=== PATIENT | female | born 2000 | race Two or more races ===

== ENCOUNTER 2024-08-29 19:06 | Emergency (ER) | payer MEDICAID, SELFPAY ==
[2024-08-29 19:45] VITALS: BP 106/70; PULSE 84; RESP 16; TEMP 36.9; O2SAT 98
--- NOTE | 2024-08-29 20:03 | XR_ITS ---
Examination: OB Transvaginal ultrasound of the pelvis, complete Technique: Transvaginal sonographic images pelvis performed using suarez scale imaging Exam date and time: August 29, 2024 2123 hrs. Indications: Early by history with pelvic pain beginning one week ago Findings: Uterus 9.1 x 5.2 x 6.3 cm Gestational sac 1.3 cm corresponds to 6 weeks 1 day gestational age Cardiac motion 94 bpm Right ovary 3.0 x 3.2 cm arterial flow 23 mm cyst Left ovary 2.2 x 2.1 cm arterial flow small follicles Impression: Early intrauterine gestation corresponding to 6 weeks 1 day gestational age Recommend short-term follow-up to confirm persistent viability
--- NOTE | 2024-08-29 20:04 | EDNOTE_ITS ---
<Statement entered by Jelena Bedolla MD - 08/30/24 04:06> As co-signing physician, I was present and available for consult prn. I concur with the plan and care as documented by the midlevel provider. ED Female Urogenital RME/HPI General Chief complaint: Abdominal Pain Stated complaint: ABD PAIN Time Seen by Provider: 08/29/24 20:02 Arrival date/time: 08/29/24 19:06 23F at approximately 6 weeks and with no significant PMH presents to ED with 1 week of intermittent but worsening N/V, L pelvic pain and some constipation. Patient denies dysuria and vaginal bleeding. Limitations: no limitations Related Data Home Medications ?Medication ?Instructions ?Recorded ?Confirmed vits no.124-ferrous fum 1 tab PO QDAY 04/19/20 08/16/20 27 mg iron-folic acid 800 mcg tablet ( Vitamin) ferrous sulfate 325 mg (65 mg 325 mg PO QDAY 08/19/20 08/19/20 iron) tablet Previous Rx's ?Medication ?Instructions ?Recorded phenazopyridine 200 mg tablet 200 mg PO TID PRN pain #9 tabs 02/04/22 (Pyridium) meloxicam 7.5 mg tablet 7.5 mg PO BID #10 tabs 09/29/22 cyclobenzaprine 10 mg tablet 10 mg PO TID PRN muscle spasm #20 05/06/23 tabs ibuprofen 800 mg tablet 800 mg PO Q8H PRN pain #30 tabs 05/06/23 loperamide 2 mg capsule (Imodium 2 mg PO Q6H PRN loose stool #14 10/05/23 A-D) caps ondansetron 4 mg disintegrating 4 mg PO Q8H PRN nausea and 10/05/23 tablet vomiting #10 tabs doxylamine 10 mg-pyridoxine (vit 1 tab PO BID PRN nausea and 08/29/24 B6) 10 mg tablet,delayed release vomiting #60 tabs (Diclegis) lactulose 10 gram/15 mL (15 mL) 10 g (15 mL) PO QDAY PRN 08/29/24 oral solution constipation #300 mL Allergies Allergy/AdvReac Type Severity Reaction Status Date / Time No Known Allergies Allergy Verified 08/29/24 19:10 Review of Systems Review of Systems Systems Reviewed: All systems reviewed, normal except as documented Constitutional Constitutional: Reports system reviewed and no additional complaints, except as documented, Denies fever(s) and Denies headache(s) ENT Ears, Nose, Mouth, and Throat: Denies disequilibrium and Denies headache(s) Cardiovascular Cardiovascular: Reports system reviewed and no additional complaints, except as documented, Denies chest pain and Denies dyspnea Respiratory Respiratory: Reports system reviewed and no additional complaints, except as documented, Denies cough and Denies dyspnea Gastrointestinal Gastrointestinal: Reports system reviewed and no additional complaints, except as documented, Reports as per HPI, Denies abdominal pain, Reports nausea and Reports vomiting Genitourinary Genitourinary: Reports as per HPI and Reports pelvic pain Neurologic Neurologic: Reports system reviewed and no additional complaints, except as documented, Denies confusion, Denies disequilibrium and Denies headache(s) Psychiatric Psychiatric: Denies confusion Past Medical History Past Medical History NEUROLOGIC: Negative Neurological Disorders CARDIAC: Negative Cardiac Disorders or Congestive Heart Failure RESPIRATORY: Negative Chronic Obstructive Pulmonary Disease (COPD) GASTROINTESTINAL: Negative Gastrointestinal Disorders GENITOURINARY: Positive Genitourinary Disorders (HISTORY OF UTI'S); Negative Renal Disease MUSCULOSKELETAL: Negative Musculoskeletal Disorders ENDOCRINE: Negative Endocrine Disorders, Diabetes Mellitus Type 1 or Diabetes Mellitus Type 2 HEMATOLOGIC: Negative Blood Disorders OTHER HISTORY: Negative Autoimmune Disease, MRSA, VRSA, Vancomycin-Resistant Enterococci or Cancer Family History FAMILY HISTORY: Positive Family Cardiac Disorders (GRAND MOTHER) and Family Cancer (GRAND MOTHER BREAST CANCER); Negative Family Psychiatric Problems, Family Respiratory Disorders, Family Gastrointestinal Problems, Family Surgery or Family Anesthesia Reaction Surgical History SURGICAL: Negative Section Social History SMOKING STATUS: Never smoker SUBSTANCE USE: marijuana ED Exam General Limitations: Present no limitations General appearance: Present alert and in no apparent distress Head Head exam: Present atraumatic Eye Eye exam: Present normal appearance, PERRL and EOMI ENT ENT exam: Present normal exam, normal oropharynx and mucous membranes moist Neck Neck exam: Present normal inspection, full ROM and trachea midline Chest Chest inspection: Present normal inspection and symmetric chest wall rise Respiratory Respiratory exam: Present normal lung sounds bilaterally Cardiovascular Cardiovascular exam: Present regular rate, normal rhythm and normal heart sounds Abdominal Exam Abdominal exam: Present soft and normal bowel sounds Extremities Exam Extremities exam: Present normal inspection and full ROM Back Exam Back exam: Present normal inspection and full ROM Neurological Exam Neurological exam: Present alert, oriented X3 and CN II-XII intact Psychiatric Psychiatric exam: Present normal affect and normal mood Skin Skin exam: Present warm, dry, intact and normal color Course Quality Measures none Orders Category Date Time Status US OB transvaginal Stat Exams 08/29/24 20:03 Completed Beta HCG,Quantitative Stat Lab 08/29/24 20:07 Completed CBC Stat Lab 08/29/24 20:07 Completed CMP [Comprehensive Metabolic Panel] Stat Lab 08/29/24 20:07 Completed UA [Urinalysis] Stat Lab 08/29/24 20:33 Completed Urine Culture Stat Lab 08/29/24 20:33 Received Metoclopramide [Reglan] Med 08/30/24 00:01 Discontinued 10 mg PO X1 ONE Vital Signs Vital signs: Vital Signs Temperature 98.4 F 08/29/24 19:45 Pulse Rate 84 08/29/24 19:45 Respiratory Rate 16 08/29/24 19:45 Blood Pressure 106/70 08/29/24 19:45 Pulse Oximetry (%) 98 08/29/24 19:45 Oxygen Delivery Method Room Air 08/29/24 19:45 O2 at 98% on RA and WNLs Urogenital - Female MDM Narrative MDM Narrative:: 23F at approximately 6 weeks and with no significant PMH presents to ED with 1 week of intermittent but worsening N/V, L pelvic pain and some constipation. Patient denies dysuria and vaginal bleeding. Physical exam reveals no pelvic tenderness. Patient is afebrile, calm, and alert. US normal IUP. Beta HCG WNLs. UA clean. Moderate leukocytosis, likely reactive. Counseled symptoms likely due to normal . However, if worsening and/or fevers/chills, can return for MRI. Patient data External records reviewed:: [facility] previous records Clinical information provided by:: patient Social determinants that could affect healthcare access:: none Patient has the following chronic illnesses:: none How is presenting disease/condition affected by chronic disease/condition?: no chronic disease Evaluation data The following diagnostics were reviewed and interpreted by me:: lab results and radiology exam(s) Lab and/or radiology exams considered but not ordered:: ordered Interpretation Summary: above Medications / Prescriptions Medications or Prescriptions considered but not ordered:: not ordered Medication administrations:: Medication Administration History Discontinued Medications Metoclopramide HCl (Metoclopramide 5 Mg Tablet) 10 mg PO X1 ONE Stop: 08/30/24 00:02 Last Admin: 08/30/24 00:08 Dose: 10 mg Documented By: n/a Consultations Consultation(s) initiated? (list below): No Diagnosis Urogenital Female Differential Diagnosis: urinary tract infection, bacterial vaginosis, trichomoniasis, cervicitis, ovarian cyst, vaginitis, ruptured ovarian cyst, cyst of Bartholin's gland, cystitis, dysmenorrhea and other (constipation, ab pain, N/V due to ) Most likely diagnosis given after review of the tests above:: constipation, ab pain, N/V due to Admission Indicated Admission indicated?: not indicated Admission Request Was there a request for admission?: No Disposition Plan Disposition Plan: Discharge Discharge Attestation Discharge Attestation: The patient and all family members were given an opportunity to ask questions and understood the discharge instructions. Discharge instructions specifically effects, indications for sooner follow up or return to the emergency department, and the expected course of current diagnosis. Patient condition: Stable Discharge Plan Plan Patient Disposition: HOME (Self Care) Disposition Comment: Stable Prescriptions/Referrals Prescriptions/Med Rec: New lactulose 10 gram/15 mL (15 mL) solution 10 g PO QDAY PRN (Reason: constipation) Qty: 300 0RF doxylamine-pyridoxine (vit B6) [Diclegis] 10-10 mg tablet,delayed release (DR/EC) 1 tab PO BID PRN (Reason: nausea and vomiting) Qty: 60 0RF No Action Vitamin 27 mg iron- 800 mcg Tablet 1 tab PO QDAY ferrous sulfate 325 mg (65 mg iron) tablet 325 mg PO QDAY phenazopyridine [Pyridium] 200 mg tablet 200 mg PO TID PRN (Reason: pain) Qty: 9 0RF loperamide [Imodium A-D] 2 mg capsule 2 mg PO Q6H PRN (Reason: loose stool) Qty: 14 0RF ondansetron 4 mg tablet,disintegrating 4 mg PO Q8H PRN (Reason: nausea and vomiting) Qty: 10 0RF meloxicam 7.5 mg tablet 7.5 mg PO BID Qty: 10 0RF cyclobenzaprine 10 mg tablet 10 mg PO TID PRN (Reason: muscle spasm) Qty: 20 0RF ibuprofen 800 mg tablet 800 mg PO Q8H PRN (Reason: pain) Qty: 30 0RF Referrals: Radha Salamanca CNM [Primary Care Provider] - In 1 week Problem List Clinical Impression: Abdominal pain, Constipation, Nausea and vomiting during Patient/Caregiver Discharge Instructions Education Materials: ED Constipation (Adult) Additional Instructions: Please follow-up with PCP/OBYGN within 24-48 hours and return immediately if symptoms worsen. Print Language: Indonesian Stand Alone Forms: Patient Portal Info Letter PA/PERISHABLE FREIGHT INSPECTOR Supervising Physician PA/PERISHABLE FREIGHT INSPECTOR Supervising Physician: Dr. Bedolla
[2024-08-29 20:29] LABS: Basophils # (Auto) 0.1 Thou/mm3 (0.0-0.2); Basophils % (Auto) 0 % (0-2.5); Eosinophils # (Auto) 0.1 Thou/mm3 (0.0-0.5); Eosinophils % (Auto) 1 % (0-10); Hematocrit 38.3 % (36.0-46.0); Hemoglobin 12.9 g/dL (12.0-16.0); Immature Granulocytes % (Auto) 0 % (0-0); Immature Granulocytes Auto 0.06 Thou/mm3 (0.00-0.00); Lymphocytes # (Auto) 5.3 Thou/mm3 (1.0-4.8); Lymphocytes % (Auto) 36 % (10-50); Mean Corpuscular HGB Conc 33.7 g/dl (31.0-37.0); Mean Corpuscular Hemoglobin 28.4 pg (25.0-35.0); Mean Corpuscular Volume 84 fL (80-100); Monocytes # (Auto) 0.7 Thou/mm3 (0.0-0.8); Monocytes % (Auto) 5 % (0-12); Neutrophils # (Auto) 8.6 Thou/mm3 (1.8-7.7); Neutrophils % (Auto) 58 % (37-80); Nucleated Red Blood Cell % 0 /100 WBC (0); Platelet Count 342 Thou/mm3 (140-440); RDW Standard Deviation 38.5 fL (36.4-46.3); Red Blood Count 4.55 Miln/mm3 (4.00-5.20); White Blood Count 14.9 Thou/mm3 (3.6-11.0)
[2024-08-29 20:58] LABS: Collection Type, Urine Clean Catch; WBC,Urine 0 /hpf (0-5)
[2024-08-29 21:07] LABS: Alanine Aminotransferase 18 U/L (10-49); Albumin, Serum 4.8 gm/dL (3.5-5.0); Albumin/Globulin Ratio 1.5 (1.2-2.2); Alkaline Phosphatase 87 U/L (46-116); Anion Gap 8 (7-16); Aspartate Amino Transferase 15 U/L (0-34); BUN/Creatinine Ratio 22 Ratio (12-20); Bilirubin,Total 0.2 mg/dL (0.3-1.2); Blood Urea Nitrogen 13 mg/dL (9-23); Calcium 10.7 mg/dL (8.3-10.6); Calcium (Corrected) 10.7 mg/dL (8.5-10.1); Carbon Dioxide 25.6 mMol/L (20.0-31.0); Chloride 103 mMol/L (98-107); Creatinine (Component) 0.6 mg/dL (0.6-1.3); Estimated Creatinine Clearance 168.5 mL/min (>60); Globulin 3.1 gm/dL (2.3-3.5); Glucose 92 mg/dL (74-106); Osmolality,Calculated 273 (275-295); Potassium 3.6 mMol/L (3.4-5.1); Sodium 137 mMol/L (136-145); Total Protein 7.9 gm/dL (5.7-8.2); eGFR > 60 See Note
[2024-08-29 21:12] LABS: Bacteria,Urine Rare; Bilirubin,Urine Negative (Negative); Blood,Urine 2+ (Negative); Clarity,Urine Clear (Clear/Hazy); Color,Urine Lt-Yellow (Lt Yel-Yel); Glucose, Urine Negative (Negative); Ketones,Urine Negative (Negative); Leukocyte Esterase,Urine Negative (Negative); Nitrite,Urine Negative (Negative); Protein,Urine Negative (Neg - Trace); RBC,Urine 5 /hpf (0-3); Specific Gravity,Urine 1.029 (1.001-1.035); Squamous Epithelial Cell,Urine 3 /hpf (0-5); Urobilinogen,Urine Negative mg/dL (0.0-1.0)
[2024-08-29 21:40] LABS: Beta HCG,Quantitative 19741 mIU/mL (<5.0)
[2024-08-30] MEDS: METOCLOPRAMIDE 5 MG TABLET 10 MG PO (00:08)
== END 2024-08-30 00:15 | disposition home or self-care (01) ==
PROVIDERS: Physician Assistant; Emergency Provider Emergency Medicine; PCP Advanced Practice Midwife
DX: O21.9 Vomiting of pregnancy, unspecified (principal); O99.891 Other specified diseases and conditions complicating pregnancy; K59.00 Constipation, unspecified; R10.9 Unspecified abdominal pain; R10.2 Pelvic and perineal pain; Z3A.01 Less than 8 weeks gestation of pregnancy
CPT/HCPCS: 36415; 76817; 80053; 81001; 84702; 85025; 87086; 99284; A9270

== ENCOUNTER 2025-01-15 10:09 | Outpatient (AMB) | payer MEDICAID, SELFPAY ==
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
[2025-01-15 10:39] VITALS: BP 108/72; PULSE 82; RESP 18; TEMP 36.6; O2SAT 99; BMI 33.9
== END 2025-01-15 10:58 | disposition home or self-care (01) ==
LOC: HODSOBC 10:09
PROVIDERS: PCP Advanced Practice Midwife; Referring Provider Advanced Practice Midwife; Supervising Provider Obstetrics & Gynecology; Visit Provider Advanced Practice Midwife
DX: Z34.82 Encounter for supervision of other normal pregnancy, second trimester (principal); Z3A.24 24 weeks gestation of pregnancy
CPT/HCPCS: 99203; G0463

== ENCOUNTER 2025-02-18 09:32 | Outpatient (AMB) | payer MEDICAID, SELFPAY ==
[2025-02-18 09:39] VITALS: BP 118/78; PULSE 94; RESP 18; TEMP 36.6; O2SAT 98; BMI 35.1
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
== END 2025-02-18 10:12 | disposition home or self-care (01) ==
LOC: HODSOBC 09:32
PROVIDERS: Supervising Provider Advanced Practice Midwife; Visit Provider Advanced Practice Midwife
DX: Z34.83 Encounter for supervision of other normal pregnancy, third trimester (principal); Z3A.32 32 weeks gestation of pregnancy; Z23 Encounter for immunization
CPT/HCPCS: 90471; 90715; 99214; G0463

== ENCOUNTER 2025-02-26 17:11 | Observation (INO) | payer MEDICAID, SELFPAY ==
[2025-02-26] VITALS (8 sets, daily range): BP systolic 107; BP diastolic 58–61; PULSE 70–102; RESP 18–99; TEMP 36.6–36.7; O2SAT 99–100; BMI 35.2; BMI 26.9
--- NOTE | 2025-02-26 17:40 | XR_ITS ---
Examination: Transvaginal ultrasound of the pelvis, limited Technique: Transvaginal sonographic images pelvis performed using suarez scale imaging Exam date and time: February 26, 2025 1817 hours INDICATIONS: Pelvic pressure today, Unknown cervical length FINDINGS: Cervix 4.6 cm closed IMPRESSION: Cervix 4.6 cm closed
--- NOTE | 2025-02-26 17:41 | XR_ITS ---
Examination: Complete OB ultrasound greater than 14 weeks Date and time of exam: February 26, 2025, 1804 hours INDICATIONS: Pelvic pressure beginning today Findings: Viable intrauterine single fetus with single amniotic sac presentation transverse/cephalic Cardiac motion 153 BPM Placenta anterior grade 2 Umbilical cord insertion seen Amniotic fluid index 6.1 cm spine maternal left Cervix 4.1 cm Ovaries obscured by bowel gas. Composite estimated gestational age based on BPD, head circumference, abdominal circumference, femur length is 32 weeks 6 days Estimated weight 2034 g. Survey of intracranial anatomy, spinal anatomy, abdominal anatomy, four-chamber heart performed with no abnormalities identified. Impression: Viable intrauterine gestation transverse cephalic presentation.
[2025-02-26 18:01] LABS: Collection Type, Urine Clean Catch
[2025-02-26 18:34] LABS: Bilirubin,Urine Negative (Negative); Blood,Urine 2+ (Negative); Calcium Oxalate Crystals,Urine 4+; Clarity,Urine Turbid (Clear/Hazy); Color,Urine Yellow (Lt Yel-Yel); Glucose, Urine Negative (Negative); Ketones,Urine Trace (Negative); Leukocyte Esterase,Urine Positive (Negative); Nitrite,Urine Negative (Negative); Protein,Urine 1+ (Neg - Trace); RBC,Urine 38 /hpf (0-3); Specific Gravity,Urine 1.034 (1.001-1.035); Squamous Epithelial Cell,Urine 6 /hpf (0-5); WBC,Urine 1 /hpf (0-5)
[2025-02-26 19:12] LABS: FFN Specimen Descripton Clr Colrless Aqueous; Fetal Fibronectin Negative (Negative)
== END 2025-02-26 20:00 | disposition home or self-care (01) ==
PROVIDERS: Obstetrics & Gynecology; Admitting Provider Advanced Practice Midwife; Visit Provider Advanced Practice Midwife
DX: O26.893 Other specified pregnancy related conditions, third trimester (principal); Z3A.32 32 weeks gestation of pregnancy; R10.2 Pelvic and perineal pain
CPT/HCPCS: 59899; 76805; 76830; 81001; 82731; G0378

== ENCOUNTER 2025-03-05 15:24 | Outpatient (AMB) | payer MEDICAID, SELFPAY ==
[2025-03-05 16:05] VITALS: BP 108/62; PULSE 96; RESP 18; TEMP 36.8; O2SAT 98; BMI 34.9
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
== END 2025-03-05 16:35 | disposition home or self-care (01) ==
LOC: HODSOBC 15:24
PROVIDERS: Supervising Provider Advanced Practice Midwife; Visit Provider Advanced Practice Midwife
DX: Z34.83 Encounter for supervision of other normal pregnancy, third trimester (principal); Z3A.33 33 weeks gestation of pregnancy
CPT/HCPCS: 99213; G0463

== ENCOUNTER 2025-03-06 22:47 | Observation (INO) | payer MEDICAID, SELFPAY ==
[2025-03-06] VITALS (13 sets, daily range): BP systolic 120; BP diastolic 71; PULSE 76–101; RESP 18–99; TEMP 36.6; O2SAT 98–100; BMI 35.3
[2025-03-07] VITALS (34 sets, daily range): BP systolic 90–113; BP diastolic 48–64; PULSE 73–98; O2SAT 98–100
[2025-03-07] MEDS: TERBUTALINE SULF INJ 1 MG/ML VIAL 0.25 MG SC ×2 (00:05→02:01)
[2025-03-07] MEDS: RINGERS LACTATED 1000 ML 1,000 ML 999 ML IV (00:25)
[2025-03-07 00:26] LABS: Collection Type, Urine Voided
[2025-03-07 00:40] LABS: Bilirubin,Urine Negative (Negative); Blood,Urine 1+ (Negative); Calcium Oxalate Crystals,Urine 2+; Color,Urine Yellow (Lt Yel-Yel); Glucose, Urine Negative (Negative); Ketones,Urine Negative (Negative); Leukocyte Esterase,Urine Positive (Negative); Nitrite,Urine Negative (Negative); PH,Urine 6.5 (5.0-7.0); Protein,Urine Trace (Neg - Trace); RBC,Urine 12 /hpf (0-3); Specific Gravity,Urine 1.024 (1.001-1.035); Squamous Epithelial Cell,Urine 4 /hpf (0-5); Urobilinogen,Urine Negative mg/dL (0.0-1.0); WBC,Urine 3 /hpf (0-5)
[2025-03-07 00:41] LABS: Clarity,Urine Cloudy (Clear/Hazy)
[2025-03-07] MEDS: BETAMET ACET/BETAMET NA PH (Celestone) 6 MG/ML VIAL 12 MG IM (02:02)
== END 2025-03-07 02:39 | disposition home or self-care (01) ==
PROVIDERS: Admitting Provider Obstetrics & Gynecology; Visit Provider Obstetrics & Gynecology
DX: O47.03 False labor before 37 completed weeks of gestation, third trimester (principal); Z3A.33 33 weeks gestation of pregnancy
CPT/HCPCS: 59025; 59899; 81001; 96372; J0702; J3105; J7120

== ENCOUNTER 2025-03-08 02:06 | Outpatient (CLI) | payer MEDICAID, SELFPAY ==
[2025-03-08 02:46] VITALS: BP 111/57; PULSE 91; RESP 18; RESP 98; TEMP 36.8
[2025-03-08] MEDS: BETAMET ACET/BETAMET NA PH (Celestone) 6 MG/ML VIAL 12 MG IM (03:09)
== END 2025-03-08 03:10 | disposition home or self-care (01) ==
LOC: S4S1 02:11 → S4SX 02:32
PROVIDERS: Referring Provider Specialist; Visit Provider Specialist
DX: Z34.83 Encounter for supervision of other normal pregnancy, third trimester (principal); Z36.9 Encounter for antenatal screening, unspecified; Z3A.33 33 weeks gestation of pregnancy
CPT/HCPCS: 59025; 96372; J0702

== ENCOUNTER 2025-04-01 14:05 | Outpatient (AMB) | payer MEDICAID, SELFPAY ==
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
[2025-04-01 14:38] VITALS: BP 107/66; PULSE 92; RESP 18; TEMP 36.4; O2SAT 97; BMI 35.2
== END 2025-04-01 15:25 | disposition home or self-care (01) ==
PROVIDERS: Supervising Provider Advanced Practice Midwife; Visit Provider Advanced Practice Midwife
DX: O09.893 Supervision of other high risk pregnancies, third trimester (principal); O21.2 Late vomiting of pregnancy; O99.891 Other specified diseases and conditions complicating pregnancy; R12 Heartburn; Z3A.36 36 weeks gestation of pregnancy
CPT/HCPCS: 99214; G0463

== ENCOUNTER 2025-04-04 20:29 | Observation (INO) | payer MEDICAID, SELFPAY ==
[2025-04-04 20:42] VITALS: BMI 34.2
[2025-04-04 20:45] VITALS: BP 119/77; PULSE 103; RESP 17; RESP 99; TEMP 36.7
[2025-04-04 20:46] VITALS: BP 119/77; PULSE 103
== END 2025-04-04 22:23 | disposition home or self-care (01) ==
PROVIDERS: Admitting Provider Advanced Practice Midwife; Visit Provider Obstetrics & Gynecology
DX: O47.1 False labor at or after 37 completed weeks of gestation (principal); Z3A.37 37 weeks gestation of pregnancy
CPT/HCPCS: 59025; 59899

== ENCOUNTER 2025-04-10 14:03 | Outpatient (AMB) | payer MEDICAID, SELFPAY ==
[2025-04-10 14:13] VITALS: BP 123/94; PULSE 75; RESP 17; TEMP 36.4; O2SAT 98; BMI 34.4
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
== END 2025-04-10 15:22 | disposition home or self-care (01) ==
LOC: HODSOBC 14:03
PROVIDERS: Supervising Provider Advanced Practice Midwife; Visit Provider Advanced Practice Midwife
DX: Z34.83 Encounter for supervision of other normal pregnancy, third trimester (principal); Z3A.38 38 weeks gestation of pregnancy
CPT/HCPCS: 99213; G0463

== ENCOUNTER 2025-04-17 15:33 | Outpatient (AMB) | payer MEDICAID, SELFPAY ==
[2025-04-17 15:52] VITALS: BP 108/70; PULSE 77; RESP 17; TEMP 36.5; O2SAT 98; BMI 35.0
--- NOTE | 2025-04-17 15:52 | OBCLNT_ITS ---
Vital Signs 04/17/25 15:52 Height 1.7 m Height Method Stated Weight 101.321 kg Weight Measurement Method Standing Scale BMI 35.0 BP 108/70 Blood Pressure Source Automatic Cuff Blood Pressure Location Right Upper Arm Position Sitting Respiration 17 Pulse 77 Pulse Source Monitor Temp 97.7 F Temp Source Temporal Artery Scan Pulse Oximetry (%) 98 Oxygen Delivery Method Room Air Allergies/Home Meds Allergies & Medications Allergies No Known Allergies Allergy (Verified 04/10/25 14:23) Intake Visit Data Collection New Patient or Established: Established Patient (seen at [facility] within 3 years) Reason for Visit:: OBC 39W1D Seen by Clinical Staff ONLY (RN/MA): No Street Car Mechanic Required: No Do You Feel Safe at Home: Yes Authorities Contacted: N/A PCP or OBGYN visit in last 3 months: Yes Date of Last PCP or OBGYN visit: 04/10/25 Hx Now: Yes Are you currently on any form of Control: No Pain Present Currently: No Pain Scale Used: Chirinos-Baldwin/Numerical Pain scale:: 0 Smoking Status Smoking Status: Never smoker Questionnaires Covid-19 Vaccine Questionnaire Has patient been vacinated for Covid-19 Have you been vacinated for Covid-19: No PHQ-9 PHQ-2 Over the last 2 weeks, how often have you been bothered by any of the following problems? 1. Little interest or pleasure in doing things: not at all 2. Feeling down, depressed, or hopeless: not at all Total score: 0 PHQ-9 3. Trouble falling or staying asleep, or sleeping too much: Not at all 4. Feeling tired or having little energy: Not at all 5. Poor appetite or overeating: Not at all 6. Feeling bad about yourself - or that you are a failure or have let yourself or your family down: Not at all 7. Trouble concentrating on things, such as reading the newspaper or watching television: Not at all 8. Moving or speaking so slowly that other people could have noticed? - Or the opposite - being so fidgety or restless that you have been moving around a lot more than usual: not at all 9. Thoughts that you would be better off or of hurting yourself in some way: Not at all Total score: 0 If you checked off any problems, how difficult have these problems made it for you to do your work, take care of things at home, or get along with other people?: not difficult at all Source: Developed by Drs. Santo Claire, Shamika Trujillo, Tk Dobbins and colleagues, with an educational torie from [employer]. Depression screen completed yes Social History Living Situation History Marital Status: Lives With: Spouse Housing: House Tobacco History Smoking Status: Never smoker Second Hand Smoke Exposure: No Alcohol History Alcohol Intake: Never Substance Use History Substance Use: THC HISTORY IN NOVEMBER Domestic Abuse History Do You Feel Safe at Home: Yes OR RN: Past Medical History Past Medical History: No Hx Neurological Disorders, No Hx Cardiac Disorders, No Hx Cancer, No Hx Blood Disorders, No Hx Gastrointestinal Disorders, No Hx Renal Disease, No Hx Diabetes Mellitus Type 1 and No Hx Diabetes Mellitus Type 2 Care OB Visit Log OB Flowsheet Initial Weight: Not Recorded Date -?-?-?-?-?-?-?-?-?--?-?-?- EGA Weight BP Alb Glu CTX Pres Fundal ht FHR Mov Dilation Station Effacement Hx Notes Visit Note 01/15/25 -?-?-?-?-?-?-?-?-?-?-?-?- 26w 0d 98.203 kg 108/72 occasional 141 a ctive 24-year-old 2 para 1 for initial OB appointment. Patient has poor dates. Last period July 04, 2025. And this gave due date March 28, 2025. However on a [facility] genetics appointment December 03 baby measured 18 weeks 2 and that would change EDC to May 05, 2025. I will call for [facility] ultrasound. I reviewed labs and all were normal. No anemia. Patient is O+, antibody screen negative,. Today I ordered third trimester labs. Patient has a follow-up maternal- ultrasound in January. Discussed diet and comfort measures labor precautions. Increase proteins and small frequent meals. Continue prenatals. Return in 3 weeks OB check, urine dip: pro-,nit-,sheron trace 02/18/25 -?-?-?-?-?-?-?-?-?-?-?-?- 30w 6d 98.6 kg 118/78 absent cephalic 32 156 active slight pressure, indigestion. fetus active. no ptl complaints, TDAP today, patient will gett 3rd tri labs 3rd tri lab, TDA P, discuss ptl precaution, call for MFM results, review fkc bid, discuss comfort measure for indigestion. rtc 2 week 03/05/25 -?-?-?-?-?-?-?-?-?-?-?-?- 33w 0d 98.486 kg 108/62 occasional cephalic 33 156 active fetus active, triage visit for UC and pressure, feels better now, 3rd tri labs wnl, 1hr: 139 fkc bid, increase fluid, review ptl precaution and er precaution. rtc 3 week. discuss gdm diet 04/01/25 -?-?-?-?-?-?-?-?-?-?-?-?- 36w 6d 98.94 kg 107/66 occasional cephalic 36 145 active increased N/V, heartburn. fetus active. denies leaking, bleeding and UC. discuss dates, discuss labor precaution. fkc bid. comfort measure for N/V and heart burn, start zifran 4 mg q 6hr. Pepcin 20 mg as needed prn, rtc 1 week. gbs 04/10/25 -?-?-?-?-?-?-?-?-?-?-?-?- 38w 1d 99.507 kg 123/94 occasional cephalic 37 145 active 1 -3 50 Continued nausea and vomiting. Reports good movement. Denies leaking. Denies bleeding. Increased cramps and pressure. Continued nausea and vomitin g. Reports good movement. Denies leaking. Denies bleeding. Increased cramps and pressure. REPEAT BP: 101/58, UA- Discussed dates. Continue EDC April 23, 2025. Discussed labor precautions. kick count twice a day. Comfort measures for early labor. Discussed danger signs symptoms and ER precautions. Return week OB check 04/17/25 -?-?-?-?-?-?-?-?-?-?-?-?- 39w 1d 101.321 kg 108/70 occasional cephalic 38 145 active 1 -2 50 Nausea and vomiting improved. Fetus active. Denies cramping. Denies leaking. Denies bleeding. Patient lost a mucous plug. Ready to have a baby Reviewed dates again. Discussed GBS. Schedule induction of labor for April 21, 2025. And I discussed induction with patient. Discussed labor precautions. Kick counts twice a day. Continue prenatals. Hydrate. Return week OB check ALEC Calculator Estimated Delivery Date Method Current WG Current Estimate 04/23/25 Manual 39w 1d no dates, b ased on 19 week M sono, EDC: 04/23/25 Other Estimates 04/10/25 LMP (Uncertain) 41w 0d 04/17/25 Ultrasound #1 40w 0d 04/23/25 Ultrasound #2 39w 1d Notes Visit Date: 04/17/25 Last Updated by: Radha Salamanca CNM 24 yo . OB panel: O+,abs-, rpr;;nr, rub imm, hbsag-,hiv-,HC-, UT:pos for THC. 1 hr gtt wnl, NIPT and carrier screen-,GBS- Visit Date: 04/10/25 Last Updated by: Radha Salamanca CNM gbs-, NO Dates, based on 19 week sono< EDC is 04/23/25 Visit Date: 02/18/25 Last Updated by: Radha Salamanca CNM 24 yo . lmp 07/04/24. EDC 04/10/25. O+,abs-,rpr;;nr, rub imm, hbsag-. HIV-, HC-, GC/CT-, A1: 5.4, CF+/FOB-. sma-, NIPT-. Office Procedures OB Clinic LOC & Office Proc's Nursing/Assessment Patient Status: Established Patient OB Clinic Nursing Assessment: Medication Reconciliation, Update PMH in EMR and Vital Signs OB Clinic Coordination of Care: Complex Care and Chronic Disease 1-5, Consent,records obtained, informed consent, Education Simp Pt/Fam and Staff clarify orders Special Needs: Heart tones Established Patient Charge Established Patient Point Assignment: 115 Established Patient Point Charge: EP Level 3 (80-115) Assessment & Plan Diagnosis / Problem List (1) Encounter for supervision of normal in multigravida in third trimester: Status: Acute Plan Schedule induction of labor April 21, 2025. Kick counts twice a day. Discussed labor precautions. Discussed ER precautions and parameters. Hydrate. Return a week OB check Additional Plan Follow Up: 1 Week (obc)
== END 2025-04-17 16:11 | disposition home or self-care (01) ==
LOC: HODSOBC 15:33
PROVIDERS: Supervising Provider Advanced Practice Midwife; Visit Provider Advanced Practice Midwife
DX: Z34.83 Encounter for supervision of other normal pregnancy, third trimester (principal); Z3A.39 39 weeks gestation of pregnancy
CPT/HCPCS: 99213; G0463

== ENCOUNTER 2025-04-20 22:18 | Inpatient (IN) | payer MEDICAID, SELFPAY ==
[2025-04-20] VITALS (15 sets, daily range): BP systolic 114; BP diastolic 88; PULSE 79–99; RESP 18; TEMP 36.4; O2SAT 94–99; BMI 34.8
[2025-04-20 23:08] LABS: Basophils # (Auto) 0.0 Thou/mm3 (0.0-0.2); Basophils % (Auto) 0 % (0-2.5); Eosinophils # (Auto) 0.1 Thou/mm3 (0.0-0.5); Eosinophils % (Auto) 1 % (0-10); Hematocrit 37.6 % (36.0-46.0); Hemoglobin 12.5 g/dL (12.0-16.0); Immature Granulocytes Auto 0.07 Thou/mm3 (0.00-0.00); Lymphocytes # (Auto) 4.1 Thou/mm3 (1.0-4.8); Lymphocytes % (Auto) 27 % (10-50); Mean Corpuscular HGB Conc 33.2 g/dl (31.0-37.0); Mean Corpuscular Hemoglobin 28.0 pg (25.0-35.0); Mean Corpuscular Volume 84 fL (80-100); Monocytes # (Auto) 0.7 Thou/mm3 (0.0-0.8); Monocytes % (Auto) 5 % (0-12); Neutrophils # (Auto) 10.4 Thou/mm3 (1.8-7.7); Neutrophils % (Auto) 67 % (37-80); Nucleated Red Blood Cell # 0.00 Thou/mm3 (0.00-0.00); Nucleated Red Blood Cell % 0 /100 WBC (0); Platelet Count 316 Thou/mm3 (140-440); RDW Standard Deviation 41.3 fL (36.4-46.3); Red Blood Count 4.47 Miln/mm3 (4.00-5.20); White Blood Count 15.4 Thou/mm3 (3.6-11.0)
[2025-04-20 23:31] LABS: Amphetamine/Metham Scrn,Ur OB Negative (Negative); Benzoylecgonine Screen, Ur OB Negative (Negative); Opiate Screen,Urine OB Negative (Negative); THC Screen,Urine OB Positive (Negative); THC U Confirm* See Sep Rpt
[2025-04-21] VITALS (205 sets, daily range): BP systolic 81–126; BP diastolic 45–86; PULSE 65–136; RESP 16–18; TEMP 36.6–36.9; O2SAT 61–100
[2025-04-21 00:08] LABS: Syphilis Nonreactive (Nonreactive)
--- NOTE | 2025-04-21 02:22 | XR_ITS ---
Examination: Complete OB ultrasound greater than 14 weeks Date and time of exam: April 21, 2025, 0227 hours INDICATIONS: Preop labor induction, unknown presentation. Findings: Viable intrauterine single fetus with single amniotic sac presentation cephalic Cardiac motion 120 BPM Placenta anterior grade 3 Umbilical cord insertion seen Amniotic fluid index 4.1 cm Surgery 4.2 cm Ovaries obscured by the fetus.. Composite estimated gestational age based on BPD, head circumference, abdominal circumference, femur length is 37 weeks 4 days. Estimated weight 3041 g. Survey of intracranial anatomy, spinal anatomy, abdominal anatomy, four-chamber heart performed with no abnormalities identified. Impression: Viable intrauterine gestation cephalic presentation Estimated gestational age 37 weeks 4 days..
--- NOTE | 2025-04-21 05:09 | PRELIM_ITS ---
Obstetric ultrasound with Doppler. April 21, 2025 0227 hours Clinical history: Complete ob Comparison: None. Findings: There is a gravid uterus with a live fetus in cephalic presentation of mean gestational age 37 weeks and 4 days (by biometry). cardiac activity is present at a heart rate of 120 beats per minute. The placenta is anterior in location, grade 3. There is no evidence of placenta previa or retroplacental hemorrhage. Amniotic fluid is low (IWONA = 4.1 cm). Estimated weight is 3041 grams+/- 450 grams. No abnormalities by Doppler. The cervix measures 4.2 cm, closed. The ovaries were not visualized. Impression: Gravid uterus with a single live fetus in cephalic presentation of mean gestational age 37 weeks and 4 days. Oligohydramnios. Discussion Details: Results were verbally communicated to Vanda Hermosillo RN A callback number is provided to facilitate direct [id number] communication. Time of verbal communication 08 : 04 am 11-24-2024 Report Electronically Signed By: Jozef Coleman 04/21/2025 5:09:15 AM [EST]
--- NOTE | 2025-04-21 09:09 | PD.LDHP ---
Documentation for date of: 04/21/25 OB Labor/Induct. HPI History of Present Illness Chief complaint: induction : 2 Para: 1 Term pregnancies: 1 pregnancies: 0 Living children: 1 History of Abortions: Spontaneous and Elective: 0 History of Vaginal deliveries: 1 History of sections: No History of : No Date of last menstrual period: 07/04/24 ALEC: 04/23/25 Gestational Age (weeks): 39 (wrong dates. 12/03/24, IUP 18w2. corrected EDC: 04/23/25. confirmed by 28 week sono on 01/29/25) Gestational Age (days): 5 Gestational age based on last menstrual period: 41 Indication for induction: other History of present illness: 24-year-old 2 para 1 for elective induction. Patient is been followed both at [facility] and severe at [facility] medical clinic. Last. Was July 04, 2024. This gave a due date of April 10, 2025. Patient had poor dates. She had her first ultrasound at [facility] December 03, 2024. Patient was 18 weeks 2. And this gave EDC 04/23/2025. Patient had history of a positive cystic fibrosis screen. Per father the baby screened negative. NIPT and SMA were all negative. Patient then had a follow-up ultrasound on January 29, 2025. She was 28 weeks. In this confirmed EDC 04/23/2025. And baby was measuring 72 percentile. Patient is O+, antibody screen negative, RPR nonreactive, rubella immune, hepatitis B negative, hep C negative, HIV negative, GC and Chlamydia were negative. Patient had a positive drug screen for marijuana. Her GC and Chlamydia were negative. 1 hour negative. And GBS negative. Denies social habits. Denies surgery. Denies chronic illness. History of Present Dating criteria: LMP confirmed by 2nd trimester US (wrong dates. EDC based on 18 week sono 12/03/24) Adequate Care: Yes Ultrasounds: normal mid trimester US Obstetrical complications: none Medical complications: none Labs Labs: Positive: Rubella Titre, Negative: RPR, Hepatitis B, HIV, Chlamydia, Gonorrhea and Group Beta Strep and Unknown: Herpes Type 1, Herpes Type 2 and Covid-19 Review of Systems Review of Systems Systems Reviewed: All systems reviewed, normal except as documented Past Medical History Surgical History SURGICAL: Negative Section Meds Home Medications and Allergies Home Medications ?Medication ?Instructions ?Recorded ?Confirmed ?Type promethazine 25 mg tablet 25 mg PO Q6H 04/20/25 04/20/25 History Allergies Allergy/AdvReac Type Severity Reaction Status Date / Time No Known Allergies Allergy Verified 04/20/25 22:25 OB Exam Physical Exam Vital signs: Temp Pulse Resp BP Pulse Ox O2 Del Method 97.9 F 98 16 105/65 94 L Room Air 04/21/25 07:33 04/21/25 08:52 04/21/25 07:33 04/21/25 08:52 04/21/25 07:51 04/21/25 05:30 Narrative: Vital signs stable afebrile. Lungs are clear no wheezes. Normal heart rate and rhythm. Gravid abdomen. Gynecoid pelvis. Estimated weight 7 pounds. Vaginal examination was long 1 thick and posterior. Vertex presentation. Bag water intact. heart rate category 1 with accelerations and moderate variability and irregular contractions Detailed Labor and Delivery Exam Dilation (cm): 1 Effacement (%): thick Cervix position: posterior station: -3 Consistency: soft Presentation: Vertex Cervical ripeness score: 3 Membranes: intact Baseline heart rate: 145 monitor accelerations: 15x15 monitor decelerations: None FDC variability: Moderate (11-25) Contraction frequency (min): irreg Contraction duration (sec): 30 Tachysystole: No Contraction intensity: Moderate OB Results Labs 04/20/25 22:27 Labs: Short CBC 04/20/25 Range/Units 22:27 WBC 15.4 H (3.6-11.0) Thou/mm3 Hgb 12.5 (12.0-16.0) g/dL Hct 37.6 (36.0-46.0) % Plt Count 316 (140-440) Thou/mm3 OB Assessment & Plan Additional Plan Induction method: per misoprostol protocol Plan: induction, anticipate NVD and consult MD glaser
[2025-04-21] MEDS: fentaNYL CIT INJ 50 mCg/ML AMP 2ML 100 MCG IVP ×2 (10:34→13:31)
[2025-04-21] MEDS: RINGERS LACTATED 1000 ML 1,000 ML 100 ML IV ×2 (15:10→15:44)
[2025-04-21] MEDS: OXYTOCIN in NS 30 units 30 UNIT/500 ML BAG IV (18:23)
[2025-04-21] MEDS: BENZO/LANO/ALOE (Dermoplast) 60 GM CAN 1 SPRAY TOP (23:01)
[2025-04-21] MEDS: OXYTOCIN in NS 20 units 20 UNIT/1,000 ML BAG 125 UNIT IV (23:01)
[2025-04-21] MEDS: OXYTOCIN INJ 10 UNIT/ML VIAL IM (23:01)
[2025-04-21] MEDS: MINERAL OIL 30 ML UDC TOP (23:01)
[2025-04-21] MEDS: IBUPROFEN TAB 400 MG TABLET 800 MG PO (23:02)
[2025-04-21] MEDS: TRANEXAMIC ACID 1,000 MG IVPB 1,000 MG/100 ML BAG 200 MG IV (23:03)
--- NOTE | 2025-04-21 23:35 | OBDSUM_ITS ---
Data (Bolanos) Data Hx Section: No : 2 Term: 1 : 0 Livin Abortions: Spontaneous & Theraputic: 0 Delivery Data (Bolanos) Labor Data Initiation of labor: Induction Induction/Augmentation Agent: Cervidil, Pitocin and Artificial ROM ROM date: 04/21/25 ROM time: 22:49 Amniotic membrane rupture type: Artificial Amniotic fluid description: Clear Delivery Data EDC: 04/23/25 EDC calculated by:: LMP/early US confirmation Date of arrival to unit: 04/20/25 Time of arrival to unit: 22:18 Onset of labor date: 04/21/25 Onset of labor time: 12:00 Complete dilation date: 04/21/25 Complete dilation time: 22:21 [place] delivery date: 04/21/25 [place] delivery time: 22:54 Gestational age (weeks): 39 Gestational age (days): 5 Placenta delivery date: 04/21/25 Placenta delivery time: 22:56 Stage 1 total time: Labor - Stage 1 Duration 10 hours and 21 minutes Delivered by: Radha Guerra Delivery nurse: sara Olivas nurse: Carmita Gut Snatcher at delivery: No Support person(s) at delivery: FOB at bedside Delivery Method Delivery method: Normal Vaginal Delivery Presentation: Vertex position: OA Anesthesia Type Anesthesia Type: Epidural Delivery Room Medications Delivery room medications given: fentanyl x2 Delivery room medications: Pitocin 10 u IM, Pitocin 20 u IV, Cytotec 800 CO and other (TXA x2) Placenta Placenta delivery description: Spontaneous (Inspected, intact, medium size clot) Cord blood sent to lab: Yes cord blood collection: Cord Blood Type Episiotomy Episiotomy description: None Lacerations #1: Perineal: 1st degree (small vag and bilateral labial tears) Perineal repair Sutures used for repair: 3.0 Vicryl (x2) EBL Estimated blood loss (ml): 400 Umbilical Cord cord description: 3 Vessels [place] Data (Bolanos) Data order: 1 's gender: Male Identification band number: [id number] weight (gms): 3370 g Weight (pounds): 7 lbs and 6.9 ozs length: 50.8 cm 1 minute: 8 5 minutes: 9 10 minutes: 9
[2025-04-22] VITALS (10 sets, daily range): BP systolic 100–123; BP diastolic 55–82; PULSE 66–95; RESP 17–18; TEMP 36.5–37; O2SAT 96
[2025-04-22] MEDS: TRANEXAMIC ACID 1,000 MG IVPB 1,000 MG/100 ML BAG 200 MG IV (00:07)
[2025-04-22] MEDS: ACETAMINOPHEN 325 MG TABLET 650 MG PO ×2 (01:32→08:45)
[2025-04-22] MEDS: IBUPROFEN TAB 400 MG TABLET 800 MG PO ×2 (05:08→19:55)
--- NOTE | 2025-04-22 07:22 | ESDS_ITS ---
DS: Providers Provider Date of admission: 04/20/25 22:18 Primary care physician: Moris Potts MD Admitting Provider: Carlo Ross MD Attending Provider on Admission: Paul Nicholson MD Consults: 04/22/25 00:02 Referral Routine Comment: Attending Provider on DC: Paul Nicholson MD Discharging Provider: Paul Nicholson MD DS: Diagnosis Problem List Completed Was Problem List Reviewed/Reconciled?: Yes Summary/Hosp Course Brief History: 24-year-old 2 para 1 for elective induction. Patient is been followed both at [facility] and severe at [facility] medical clinic. Last. Was July 04, 2024. This gave a due date of April 10, 2025. Patient had poor dates. She had her first ultrasound at [facility] December 03, 2024. Patient was 18 weeks 2. And this gave EDC 04/23/2025. Patient had history of a positive cystic fibrosis screen. Per father the baby screened negative. NIPT and SMA were all negative. Patient then had a follow- up ultrasound on January 29, 2025. She was 28 weeks. In this confirmed EDC 04/23/2025. And baby was measuring 72 percentile. Patient is O+, antibody screen negative, RPR nonreactive, rubella immune, hepatitis B negative, hep C negative, HIV negative, GC and Chlamydia were negative. Patient had a positive drug screen for marijuana. Her GC and Chlamydia were negative. 1 hour negative. And GBS negative. Denies social habits. Denies surgery. Denies chronic illness. Peripartum Data Delivery Method: Normal Vaginal Delivery Episiotomy Description: None Time Spent with Patient Time attestation: Total time spent providing and/or coordinating discharge services: Exam Vital Signs Temp Pulse Resp BP Pulse Ox O2 Del Method 98.4 F 66 17 101/64 96 Room Air 04/22/25 03:58 04/22/25 03:58 04/22/25 03:58 04/22/25 03:58 04/22/25 03:58 04/22/25 03:58 Discharge Plan Prescriptions/Referrals Prescriptions/Med Rec: No Action vit-iron fum-folic ac [ Vitamin with Minerals] 28 mg iron- 800 mcg tablet 1 tab PO QDAY Qty: 60 4RF ondansetron 4 mg tablet,disintegrating 4 mg PO Q6H PRN (Reason: nausea and vomiting) Qty: 30 2RF promethazine 25 mg tablet 25 mg PO Q6H Patient Comments: TAKE 1 TABLET ORALLY EVERY 6 HOURS NEEDED FOR NAUSEA AND VOMITING Referrals: Moris Potts MD [Primary Care Provider] - Patient/Caregiver Discharge Instructions Print Language: Maori Planned Discharge Date 04/22/25
--- NOTE | 2025-04-22 07:22 | PD.LDPPPRG ---
Subjective Subjective Interval history: Patient denies any primary complaint Exam Vital Signs Temp Pulse Resp BP Pulse Ox O2 Del Method 98.4 F 66 17 101/64 96 Room Air 04/22/25 03:58 04/22/25 03:58 04/22/25 03:58 04/22/25 03:58 04/22/25 03:58 04/22/25 03:58 Routine Respiratory Exam Comments: Clear to auscultation bilaterally Routine Cardiovascular Exam Comments: Regular rate and rhythm Routine Abdominal Exam Comments: Fundus is firm nontender Routine Extremities Exam Comments: Nontender or edema Objective Labs 04/20/25 22:27 Impressions Impression: day #1 status post spontaneous vaginal delivery Discharge home Discharge instructions given Follow-up in the office in 6 weeks Assessment & Plan Time Spent With Patient Time: Total time spent is greater than 50% in coordination of care (as documented) at patient's floor/unit and/or counseling patient:
[2025-04-22 08:26] LABS: Basophils # (Auto) 0.0 Thou/mm3 (0.0-0.2); Basophils % (Auto) 0 % (0-2.5); Eosinophils # (Auto) 0.1 Thou/mm3 (0.0-0.5); Eosinophils % (Auto) 0 % (0-10); Hematocrit 29.9 % (36.0-46.0); Hemoglobin 10.2 g/dL (12.0-16.0); Immature Granulocytes Auto 0.09 Thou/mm3 (0.00-0.00); Lymphocytes # (Auto) 3.4 Thou/mm3 (1.0-4.8); Lymphocytes % (Auto) 18 % (10-50); Mean Corpuscular HGB Conc 34.1 g/dl (31.0-37.0); Mean Corpuscular Hemoglobin 28.8 pg (25.0-35.0); Mean Corpuscular Volume 85 fL (80-100); Monocytes # (Auto) 1.4 Thou/mm3 (0.0-0.8); Monocytes % (Auto) 7 % (0-12); Neutrophils # (Auto) 14.3 Thou/mm3 (1.8-7.7); Neutrophils % (Auto) 74 % (37-80); Nucleated Red Blood Cell # 0.00 Thou/mm3 (0.00-0.00); Nucleated Red Blood Cell % 0 /100 WBC (0); Platelet Count 245 Thou/mm3 (140-440); RDW Standard Deviation 42.5 fL (36.4-46.3); Red Blood Count 3.54 Miln/mm3 (4.00-5.20); White Blood Count 19.3 Thou/mm3 (3.6-11.0)
--- NOTE | 2025-04-22 08:38 | PD.LDPPPRG ---
Subjective Subjective Interval history: No complaints of pain. No dizziness. Bonding breast-feeding Exam Vital Signs Temp Pulse Resp BP Pulse Ox O2 Del Method 98.4 F 66 17 101/64 96 Room Air 04/22/25 03:58 04/22/25 03:58 04/22/25 03:58 04/22/25 03:58 04/22/25 03:58 04/22/25 03:58 Narrative Exam Vital signs stable afebrile. Pressure soft. Fundus firm below the umbilicus. Perineum intact no swelling. Small lochia. Uterus well involuted. 2+ DTRs. Negative Homans' sign Objective Labs 04/22/25 07:40 Labs: Laboratory Results - last 24 hr 04/22/25 07:40 WBC 19.3 H RBC 3.54 L Hgb 10.2 L D Hct 29.9 L MCV 85 MCH 28.8 MCHC 34.1 RDW Std Deviation 42.5 Plt Count 245 D Neut % (Auto) 74 Lymph % (Auto) 18 [place] % (Auto) 7 Eos % (Auto) 0 Baso % (Auto) 0 Neut # (Auto) 14.3 H Lymph # (Auto) 3.4 [place] # (Auto) 1.4 H Eos # (Auto) 0.1 Baso # (Auto) 0.0 Immature Gran # (Auto) 0.09 H Absolute Nucleated RBC 0.00 Immature Gran % 1 H Nucleated RBC % 0 Assessment & Plan Assessment Comment Assessment comment: 24 hr pp Plan Comment Plan Comment: Discharge home tomorrow with baby. Continue vitamins and iron. Tylenol or ibuprofen for pain. Encourage breast-feeding and bonding. Encourage fluids Time Spent With Patient Time: Total time spent is greater than 50% in coordination of care (as documented) at patient's floor/unit and/or counseling patient:
[2025-04-22] MEDS: DOCUSATE SOD 100 MG CAPSULE PO ×2 (08:46→20:13)
--- NOTE | 2025-04-22 10:51 | PC.SS ---
Biophysics Scientist submitted verbal report to CWS staff, Ramona Miller. written report submitted via fax to [phone]. Bases of CWS report due to patient testing positive for THC upon admission, S staff informed SS no barrier to patient's discharge. CWS to follow up with patient on outpatient bases. Copy of written report placed on the patients chart social insurance adviser provided update to bedside nurse.
--- NOTE | 2025-04-22 11:47 | PC.SS ---
RESIDENTIAL WORKER conducted bedside contact with the patient to address nursing referral indicating patient was positive for THC upon admission.? RESIDENTIAL WORKER introduced self and role.? Present with patient was FOB, Andriy Cote.? Patient gave consent for FOB to be present during discussion.? RESIDENTIAL WORKER discussed basis of referral.? Patient confirmed unknown use of THC.? Patient stated that incident occurred during gathering with friends.? Patient informed RESIDENTIAL WORKER that THC edible was ingested.? Per patient not aware that edible contained THC.? Upon ceased consumption of items upon confirming THC within ingredients.? Incident occurred approximately 2 weeks ago.? Patient reported incident to OB Radha Salamanca.? RESIDENTIAL WORKER notified patient that CWS report will be generated due to toxicology reports for both patient and positive for THC.? Patient acknowledged basis for CWS referral.? Infant, Andriy; is the patient?s second child.? Infant delivered naturally.? Patient plans on the .? Other child is age 4.? FOB to be involved in the rearing of the .? OB services provided by Radha Salamanca.? Patient confirms consistency with OB appointments.? ?s material yard clerk is Dr. Maria.? Patient is aligned with SNAP, WIC, TANF.? Patient denies history of alcohol/drug abuse.? Patient denies CWS intervention.? Patient denies episodes of domestic violence.? Patient reports history of anxiety.? Patient denies history of prescription medications to address anxiety.? Patient denies current intent/plan of SI/HI.? FOB reports no concern with patient?s level of anxiety.? No impairment with daily functioning reported.? Patient has access to appropriate supplies and equipment; to include a car seat.? FOB will provide transportation upon discharge.? Patient describes possessing support system consisting of FOB?s parents and extended family.? RESIDENTIAL WORKER provided the patient with community resources to include Parenting Network and Warm Line.? No further intervention required at this time, social psychologist will be available to address any further concerns.? RESIDENTIAL WORKER updated bedside nurse.? CWS report to be submitted.
[2025-04-23] MEDS: ACETAMINOPHEN 325 MG TABLET 650 MG PO (03:05)
[2025-04-23] MEDS: IBUPROFEN TAB 400 MG TABLET 800 MG PO (04:20)
[2025-04-23 04:25] VITALS: BP 112/72; PULSE 64; RESP 18; TEMP 36.4; O2SAT 96
[2025-04-23 08:20] VITALS: BP 103/65; PULSE 86; RESP 16; TEMP 37; O2SAT 97
[2025-04-23] MEDS: DOCUSATE SOD 100 MG CAPSULE PO (08:29)
--- NOTE | 2025-04-23 08:38 | PD.LDPPPRG ---
Subjective Subjective Interval history: No complaints of pain. No dizziness. Bonding breast-feeding Exam Vital Signs Temp Pulse Resp BP Pulse Ox O2 Del Method 97.5 F 64 18 112/72 96 Room Air 04/23/25 04:25 04/23/25 04:25 04/23/25 04:25 04/23/25 04:25 04/23/25 04:25 04/23/25 04:25 Narrative Exam Vital signs stable afebrile. Breasts are soft. Fundus firm below the lightest. Perineum intact no swelling. Small lochia. Uterus well involuted. Negative Homans' sign. 2+ DTR Objective Labs 04/22/25 07:40 Assessment & Plan Assessment Comment Assessment comment: 48 hr pp Plan Comment Plan Comment: Discharge home with baby. Continue vitamins and iron. Tylenol ibuprofen for pain. Danger signs. Return in 3 weeks visit. Discussed signs and symptoms of infection and ER precautions with parameters. Increase fluids. Time Spent With Patient Time: Total time spent is greater than 50% in coordination of care (as documented) at patient's floor/unit and/or counseling patient:
--- NOTE | 2025-04-23 08:39 | PD.LDDS ---
DS: Providers Provider Date of admission: 04/20/25 22:18 Primary care physician: Moris Potts MD Admitting Provider: Carlo Ross MD Attending Provider on Admission: Paul Nicholson MD Consults: 04/22/25 00:02 Referral Routine Comment: Attending Provider on DC: Radha Salamanca CNM Discharging Provider: Radha Salamanca CNM DS: Diagnosis Problem List Completed Was Problem List Reviewed/Reconciled?: Yes Summary/Hosp Course Brief History: 24-year-old 2 para 1 for elective induction. Patient is been followed both at [facility] and severe at [facility]. Last. Was July 04, 2024. This gave a due date of April 10, 2025. Patient had poor dates. She had her first ultrasound at [facility] December 03, 2024. Patient was 18 weeks 2. And this gave EDC 04/23/2025. Patient had history of a positive cystic fibrosis screen. Per father the baby screened negative. NIPT and SMA were all negative. Patient then had a follow-up ultrasound on January 29, 2025. She was 28 weeks. In this confirmed EDC 04/23/2025. And baby was measuring 72 percentile. Patient is O+, antibody screen negative, RPR nonreactive, rubella immune, hepatitis B negative, hep C negative, HIV negative, GC and Chlamydia were negative. Patient had a positive drug screen for marijuana. Her GC and Chlamydia were negative. 1 hour negative. And GBS negative. Denies social habits. Denies surgery. Denies chronic illness. Peripartum Data Delivery Method: Normal Vaginal Delivery Episiotomy Description: None Laceration Description: yes (bilateraL vag laceration) Time Spent with Patient Time attestation: Total time spent providing and/or coordinating discharge services: Exam Vital Signs Temp Pulse Resp BP Pulse Ox O2 Del Method 97.5 F 64 18 112/72 96 Room Air 04/23/25 04:25 04/23/25 04:25 04/23/25 04:25 04/23/25 04:25 04/23/25 04:25 04/23/25 04:25 Discharge Plan Plan Patient Disposition: HOME (Self Care) Patient condition on transfer: Stable Prescriptions/Referrals Prescriptions/Med Rec: New ibuprofen 600 mg tablet 600 mg PO Q6H PRN (Reason: pain) Qty: 30 0RF Continued vit-iron fum-folic ac [ Vitamin with Minerals] 28 mg iron- 800 mcg tablet 1 tab PO QDAY Qty: 60 4RF Discontinued ondansetron 4 mg tablet,disintegrating 4 mg PO Q6H PRN (Reason: nausea and vomiting) Qty: 30 2RF promethazine 25 mg tablet 25 mg PO Q6H Patient Comments: TAKE 1 TABLET ORALLY EVERY 6 HOURS NEEDED FOR NAUSEA AND VOMITING Referrals: Moris Potts MD [Primary Care Provider] - Patient/Caregiver Discharge Instructions Discharge Activity: activity as tolerated and resume usual activities Other Discharge Activity Instructions:: Follow up office 6 weeks Print Language: Libyan Activity Restrictions/Additional Instructions: , Baby. Continue vitamins and iron. Tylenol ibuprofen for pain. Discussed danger signs and symptoms and ER. Discussed signs symptoms of infection. Increase fluids. Return in 3 weeks visit Stand Alone Forms: Susana Award Info., Patient Portal Info Letter, Important Information, Work/Release Restrictions Discharge Order Discharge Orders: Discharge (Routine); Ordered 04/22/25 Ordered By: Paul Nicholson Planned Discharge Date 04/23/25
== END 2025-04-23 12:57 | disposition home or self-care (01) | DRG 560 ==
LOC: S4SX 04-21 23:19 → S4NX 04-22 01:04
PROVIDERS: Advanced Practice Midwife; Admitting Provider Obstetrics & Gynecology; PCP Family Medicine; Visit Provider Specialist
DX: O70.0 First degree perineal laceration during delivery (principal); Z37.0 Single live birth; Z3A.39 39 weeks gestation of pregnancy
CPT/HCPCS: 36415; 76805; 80053; 80307; 81001; 82570; 84156; 84550; 85025; 85384; 85610; 85730; 86780; 86850; 86900; 86901; J2590; J2795; J3010; J3490; J7120; S0191; A9270